=== PATIENT | male | born 1975 | race African-American/Black ===

== ENCOUNTER 2024-03-23 11:06 | Emergency (ER) | payer MEDICAID ==
[~2024-03-23] VITALS: Ht 177.8 cm; Wt 90.0 kg
[~2024-03-23 11:06] MED LIST: ALBU0.084; HYDR25TA4; HYDR7.5T
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
[2024-03-23 12:45] LABS: Basophils % (auto) 0.5 % (0.0-2.0); Eosinophils % (auto) 1.4 % (0.0-7.0); Lymphocytes % (auto) 22.5 % (10.0-50.0); Monocytes % (auto) 6.3 % (0.0-12.0); Neutrophils # (auto) 5.5 10 ^3/uL (1.6-8.6); Neutrophils % (auto) 69.3 % (37.0-80.0); Nucleated Red Blood Cells % 0.1 %
[2024-03-23 12:46] LABS: Basophils # (auto) 0 10 ^3/uL (0-0.2); Eosinophils # (auto) 0.1 10 ^3/uL (0-0.8); Hematocrit 47.5 % (41.0-53.0); Hemoglobin 16.3 g/dL (13.5-17.5); Lymphocytes # (auto) 1.8 10 ^3/uL (0.4-5.4); Mean Corpuscular Hemoglobin 30.3 pg (28.0-32.0); Mean Corpuscular Hgb Conc. 34.3 g/dL (32.0-36.0); Mean Corpuscular Volume 88.3 fL (80.0-100.0); Monocytes # (auto) 0.5 10 ^3/uL (0-1.3); Platelet Count (auto) 237 10^3/uL (140-450); Red Blood Cells 5.38 10^6/uL (4.5-5.90); Red Cell Distribution Width 14.1 % (11.8-14.3)
[2024-03-23 13:02] LABS: Alanine Aminotransferase 24 U/L (7-40); Albumin 4.6 g/dL (3.2-4.8); Alkaline Phosphatase 78 U/L (46-116); Anion Gap 5 (5-15); Aspartate Aminotransferase 14 U/L (13-40); BUN/Creatinine Ratio 13.3 (10.0-20.0); Bilirubin, Total 1.8 mg/dL (0.2-1.0); Blood Urea Nitrogen 12 mg/dL (9-23); Carbon Dioxide 29 mmol/L (20-31); Chloride 109 mmol/L (98-107); Glucose 95 mg/dL (74-106); Lipase 59 U/L (12-53); Potassium 4.2 mmol/L (3.5-5.1); Sodium 143 mmol/L (136-145); Total Protein 6.7 g/dL (5.7-8.2)
[2024-03-23] MEDS: PANTOPRAZOLE 40 MG/10 ML VIAL INJ IV ONE (13:07)
[2024-03-23] MEDS: hydrALAZINE HCL 20 MG/ML VL IV ONE (13:13)
--- NOTE | 2024-03-23 13:19 | DVH ---
CT ABDOMEN AND PELVIS WITHOUT CONTRAST CLINICAL HISTORY: RUQ pain n/v TECHNIQUE: Multiple contiguous axial images of the abdomen and pelvis without intravenous contrast. The images were reformatted degenerate coronal and sagittal reconstructions. All CT scans at this medical facility are performed using dose modulation techniques as appropriate t o a performed exam including the following:Automated exposure control was utilized; adjustment of the MA and/or KV according to patient size; and use of iterative reconstruction technique. Radiation Dose Information: CT Dose: CTDI volume is 13.97 mGy. Dose-length product is 786.09 mGy*cm Comparison: None FINDINGS: Evaluation of the abdomen and pelvis is limited without intravenous contrast. There is a 1.9 x 1.7 cm hypodense right adrenal gland nodule likely an adenoma. The left adrenal gla nd appears within normal limits. The liver, gallbladder, pancreas, kidneys, and spleen appear within normal limits. There is no gross evidence of abdominal lymphadenopathy. There is no free fluid or free air. The small and large bowel loops demonstrate normal caliber. There are scattered diverticula in the c olon without evidence of acute diverticulitis. A nonenlarged air-filled appendix is seen in the right lower quadrant abdomen without significant inflammatory changes. The abdominal aorta and IVC appear within normal limits. The prostate gland is mildly prominent in size and indents the base of the bladder. Bladder otherwise appears within normal limits. There is no gross evidence of a pelvic mass or free fluid collection. Lung bases are clear. There is no acute osseous abnormality. There are advanced degenerative disc changes at the L4-L5 and L5-S1 levels. IMPRESSION: 1. There is no acute process in the abdomen and pelvis. 2. 1.9 x 1.7 cm right adrenal adenoma. 3. Mild prostatomegaly. 4. Scattered diverticula in the distal colon without evidence of acute diverticulitis. 5. Advanced degenerative disc changes at the L4-L5 and L5-S1 levels. HS:Y
[2024-03-23 16:39] LABS: Magnesium 2.5 mg/dL (1.6-2.6)
[2024-03-23 16:41] LABS: Phosphorus 3.1 mg/dL (2.4-5.1)
[2024-03-23] MEDS: ONDANSETRON HCL 4 MG/2 ML VIAL IV ONE (19:00)
[2024-03-23] MEDS: LABETALOL HCL 20 MG/4 ML VL IV ONE ×2 (19:01→20:55)
[2024-03-23] MEDS: NITROGLYCERIN 0.4 MG SL TAB SL ONE ×2 (19:01→22:15)
[2024-03-23 19:35] VITALS: PULSE 80; RESP 12; TEMP 97.9; O2SAT 97
[2024-03-23] MEDS: HYDROcodone-ACET 5/325MG TAB PO ONE (21:46)
[2024-03-23 23:00] VITALS: BP 133/79; PULSE 79; RESP 14; O2SAT 98
== END 2024-03-23 23:07 | disposition home or self-care (01) ==
LOC: EDBD 11:06 → ER 11:06
DX: I16.9 Hypertensive crisis, unspecified (principal); D35.01 Benign neoplasm of right adrenal gland; K57.30 Diverticulosis of large intestine without perforation or abscess without bleeding; N40.0 Benign prostatic hyperplasia without lower urinary tract symptoms; I10 Essential (primary) hypertension; J45.909 Unspecified asthma, uncomplicated; F17.210 Nicotine dependence, cigarettes, uncomplicated; F15.90 Other stimulant use, unspecified, uncomplicated; E78.5 Hyperlipidemia, unspecified; Z79.899 Other long term (current) drug therapy
CPT/HCPCS: 36415; 74176; 80053; 83605; 83690; 83735; 84100; 84484; 85025; 96374; 96375; 96376; 99285; J0360; J2470